=== PATIENT | male | born 1970 | race Caucasian/White ===

== ENCOUNTER 2022-06-11 13:15 | Outpatient (CLI) | payer OTHER ==
[~2022-06-11] VITALS: Ht 188 cm; Wt 87.1 kg
== END 2022-06-11 13:54 | disposition home or self-care (01) ==
LOC: PREOP 13:15
PROVIDERS: ATTEND Internal Medicine
DX: Z01.818 Encounter for other preprocedural examination (principal)

== ENCOUNTER 2022-06-22 09:38 | Day surgery (SDC) | payer OTHER ==
--- NOTE | 2022-06-13 06:49 | HISTORY AND PHYSICAL ---
DATE OF SERVICE: 06/22/2022 COLONOSCOPY HISTORY AND PHYSICAL DATE OF ADMISSION: . HISTORY OF PRESENT ILLNESS: The patient is a 52-year-old white male being set up for colonoscopy, deemed to be of higher than average risk due to a family history for colon cancer. He had one another colonoscopy over 10 years ago for which he does not believe any polyps or other abnormalities were noted. He denies abdominal pain, bright red blood per rectum or change in bowel habit. He had a history of hypothyroidism, but has been off of his thyroid medication for a month without any symptoms. When I saw him a month ago, at that time, his TSH was 7 and he has continued off of thyroid replacements, reporting no fatigue or cold intolerance. He has voiced no other complaints. PHYSICAL EXAMINATION: GENERAL: Reveals a well-appearing white male in no acute distress. VITAL SIGNS: Weight was up 2 pounds from a month ago to 192, although I suspect clothing differences account for all of this. Blood pressure 110/86, heart rate 70 and regular. CHEST: Clear. CARDIOVASCULAR: Reveals a regular rate and rhythm without murmur, S3 or S4. ABDOMEN: Soft, supple without mass, organomegaly or tenderness. EXTREMITIES: Reveal no cyanosis, clubbing or edema. ASSESSMENT AND PLAN: Subclinical hypothyroidism. We did obtain a TSH today. If I can add it, we will also get an antiperoxidase antibody level. He is being set up for colonoscopy on 06/22/2022. Prep instructions were given and questions were answered. I will see him back in six months with a repeat TSH. Job ID: [id number] DocumentID: [id number] Dictated Date: 06/07/2022 17:07:59 Manager Multicultural Date: 06/07/2022 17:19:00 Dictated By: MATHIEU BURT MD
[~2022-06-22] VITALS: Ht 188 cm; Wt 87.1 kg
[2022-06-22] MEDS ORDERED: LACTATED RINGERS 1,000 ML IV STA (09:39)
[2022-06-22 09:55] VITALS: BP 125/89
--- NOTE | 2022-06-22 10:19 | Pre-Op Note & Conscious Sedat ---
Pre-Operative Progress Note Date H&P Reviewed: Jun 22, 2022 Time H&P Reviewed: 10:19 History & Physical: H&P Reviewed, Patient Examed, No changes noted Pre-Op Diagnosis: screening Conscious Sedation Pre-Proced ASA Score 1 For ASA 3 and 4: Consider anesthesia and medical clearance. Also, for patients with a history of failed moderate sedation consider anesthesia. Airway Lungs Heart ASA score ASA 1: a normal healthy patient ASA 2: a patient with a mild systemic disease (mid diabetes, controlled hypertension, obesity ASA 3: a patient with a severe systemic disease that limits activity (angina, COPD, prior Myocardial infarction) ASA 4: a patient with an incapacitating disease that is a constant threat to life (CHF, renal failure) ASA 5: a moribund patient not expected to survive 24 hrs. (ruptured aneurysm) ASA 6: a declared brain- patient whose organs are being harvested. For emergent operations, add the letter E after the classification Mallampati Classification Grade 2 Sedation Plan Analgesia, Amnesia, Plan communicated to team members, Discussed options with patient/fam, Discussed risks with patient/fam The patient is an appropriate candidate to undergo the planned procedure, sedation, and anesthesia. The patient immediately re-assessed prior to indication. MATHIEU BURT MD Jun 22, 2022 10:19
[2022-06-22] MEDS ORDERED: PROPOFOL INJECTION 50 ML IV ONE (10:50)
--- NOTE | 2022-06-22 11:16 | Anesthesia-General Post-Op ---
MAC Patient Condition Mental Status/LOC: Same as Preop Cardiovascular: Satisfactory Nausea/Vomiting: Absent Respiratory: Satisfactory Pain: Controlled Complications: Absent Post Op Complications Complications None Follow Up Care/Instructions Patient Instructions None needed. Anesthesiology Discharge Order Discharge Order Patient is doing well, no complaints, stable vital signs, no apparent adverse anesthesia problems. No complications reported per nursing. REESE STEVENSON CRNA Jun 22, 2022 11:16
--- NOTE | 2022-06-22 11:17 | Progress Note-Post Operative ---
Post-Procedure Note Physician (s)/Medical Planner (s) Physician MATHIEU BURT MD Pre-Procedure Diagnosis Pre-Procedure Diagnosis: screening Post-Procedure Diagnosis Post-operative diagnosis: Prior to undergoing colonoscopy digital rectal evaluation was performed. Anal sphincter tone was normal and the perianal reflexes intact. Prostate was unremarkable to digital inspection as well as the anal canal and distal rectal vault. The colonoscope was then inserted into the rectum and under direct visualization advanced to the cecum. The cecum was identified by identification of the ileocecal valve and the cecal strap. Photographic documentation was obtained. A careful inspection was made as the colonoscope was withdrawn. Quality of the prep was good. Findings: There was no evidence for internal or external hemorrhoids and the rectum was unremarkable. In the proximal sigmoid colon there was a diminutive sessile 5 mm polyp that was photographed and biopsied and ablated with no blood loss. No diverticular disease was noted. The descending colon was unremarkable. A 3 millimeter sessile polyp was noted at the splenic flexure. It was photographed and biopsied and ablated with no blood loss. The transverse colon hepatic flexure ascending colon and cecum were unremarkable. Assessment: 2 sessile subcentimeter polyps removed via hot forceps with no blood loss today the larger in the proximal sigmoid colon and smaller at the splenic flexure. This was an otherwise normal colonoscopy to the cecum. Considering family history would advocate consideration for repeat screening colonoscopy in 5 years. Digital evaluation of the prostate was unremarkable as well. MATHIEU BURT MD Jun 22, 2022 11:17
[2022-06-22 11:19] VITALS: BP 101/66
[2022-06-22 11:24] VITALS: BP 110/74
[2022-06-22 11:30] VITALS: BP 109/72
[2022-06-22 12:05] VITALS: BP 109/72
== END 2022-06-22 12:05 | disposition home or self-care (01) ==
LOC: ENDO 09:38
PROVIDERS: ATTEND Internal Medicine
DX: Z12.11 Encounter for screening for malignant neoplasm of colon (principal); D12.3 Benign neoplasm of transverse colon; K63.5 Polyp of colon; E03.8 Other specified hypothyroidism; Z80.0 Family history of malignant neoplasm of digestive organs; Z28.310 Unvaccinated for COVID-19